=== PATIENT | female | born 1945 | race Caucasian/White ===

== ENCOUNTER 2020-09-02 07:03 | Emergency (ER) | payer MEDICARE, OTHER ==
[~2020-09-02] VITALS: Ht 167.6 cm; Wt 61.2 kg
[2020-09-02] MEDS ORDERED: IPRATROPIUM BROM 0.5 MG/2.5ML INH SOL HHN ONE (07:45)
[2020-09-02] MEDS ORDERED: DexAMETHasone SOD PHOS 10MG/1ML VIAL INJ IM ONE (07:45)
[2020-09-02] MEDS ORDERED: ALBUTEROL SULF 2.5 MG/0.5ML(0.5%) NEB SOLN HHN ONE (07:45)
[2020-09-02 08:00] VITALS: BP 162/85
== END 2020-09-02 09:39 | disposition home or self-care (01) ==
LOC: ER 07:03
DX: J44.1 Chronic obstructive pulmonary disease with (acute) exacerbation (principal); I10 Essential (primary) hypertension; Z20.828 Contact with and (suspected) exposure to other viral communicable diseases
CPT/HCPCS: 36415; 71045; 87426; 93005; 94640; 96372; 99285; C9803; J1100; J7644; U0003

== ENCOUNTER 2021-11-05 10:44 | Emergency (ER) | payer OTHER ==
[~2021-11-05] VITALS: Ht 175.3 cm; Wt 78.0 kg
[2021-11-05 13:00] VITALS: BP 144/66
[2021-11-05] MEDS ORDERED: methylPREDNISolone SOD SUCC 125 MG/2 ML VL IM ONE (13:00)
[2021-11-05] MEDS ORDERED: BENZ100C19 PO (13:19)
[2021-11-05] MEDS ORDERED: DOXY-286 PO (13:19)
[2021-11-05] MEDS ORDERED: PRED10TA PO (13:19)
[2021-11-05] MEDS ORDERED: ALBUAER3 IN (13:19)
== END 2021-11-05 13:21 | disposition home or self-care (01) ==
LOC: ER 10:44
DX: J20.9 Acute bronchitis, unspecified (principal); J44.9 Chronic obstructive pulmonary disease, unspecified; K21.9 Gastro-esophageal reflux disease without esophagitis; I10 Essential (primary) hypertension; E03.9 Hypothyroidism, unspecified; Z20.822 Contact with and (suspected) exposure to COVID-19
CPT/HCPCS: 36415; 71046; 87426; 96372; 99284; J2930